=== PATIENT | female | born 1995 | race Caucasian/White ===

== ENCOUNTER → 2017-12-08 | Outpatient (CLI) | payer BC ==
--- NOTE | 2017-12-08 15:34 | WOMENS IMAGING REPORT ---
EXAM DESCRIPTION: U/S BREAST UNILATERAL, COMPL COMPLETED DATE/TIME: 12/08/2017 11:08 am REASON FOR STUDY: BILATERAL BREAST PAIN N64.4 N64.4 MASTODYNIA COMPARISON: None. TECHNIQUE: Real-time and static grayscale imaging performed of the right and left whole breast and b ilateral axillae. Selected color Doppler images recorded. LIMITATIONS: None. FINDINGS: Right breast and axilla: Patient describes lateral right breast pain. Ultrasound of the entire right breast was performed. A 7 mm cyst is present at the 12 o'clock position without worrisome features. A 5 mm cyst is present at the 9 o'clock position without worrisome features. A 6 mm cyst is present at the retroareolar region without worrisome features. Ultrasound of the right axilla demonstrates a benign lymph node with normal cortical thickness and ce ntral hilar fat, 2.3 by 0.9 cm in size. Left breast and axilla: Patient describes lateral left breast pain. Ultrasound of the entire left breast was performed. A 3 mm cyst is present at the 7 to 8 o'clock position without worrisome features. A 4 mm cyst is present at the 10 to 11 o'clock position without worrisome features. A 5 mm cyst is present in the retroareolar region without worrisome features. Ultrasound of the left axilla demonstrates no focal findings. IMPRESSION: No suspicious findings detected by ultrasound. BIRAD: 2 Benign findings. RECOMMENDATION: RECOMMENDED FOLLOW-UP: Follow-up as clinically indicated. COMMENT: The [employer] ([employer]) has developed recommendations for screening MRI of the breasts in certain patient populations, to be used in conjunction with mammography. Breast MRI s urveillance may be appropriate for women with more than 20% lifetime risk of developing breast cancer as determined by genetic testing, significant family history of the disease, or history of mantle r adiation for Hodgkins Disease. [employer] Practice Guidelines 2008. TECHNICAL DOCUMENTATION: JOB ID: [id number] [employer]- All Rights Reserved Reading location - IP/workstation name: [facility]
== END ==
LOC: WI 10:01
PROVIDERS: ATTEND Nurse Practitioner Family
DX: N64.4 Mastodynia (principal)
CPT/HCPCS: 76641